=== PATIENT | female | born 1985 | race Caucasian/White ===

== ENCOUNTER 2019-06-14 10:55 | Emergency (ER) | payer OTHER ==
[~2019-06-14] VITALS: Ht 165.1 cm; Wt 70.3 kg
[~2019-06-14 10:55] MED LIST: CIPRO500 MG PO
[2019-06-14] MEDS ORDERED: ZITHROMAX TRI-500 MG PO (15:38)
== END 2019-06-14 16:23 | disposition home or self-care (01) ==
LOC: ER 10:55
DX: B96.0 Mycoplasma pneumoniae [M. pneumoniae] as the cause of diseases classified elsewhere (principal); A90 Dengue fever [classical dengue]; R50.9 Fever, unspecified

== ENCOUNTER 2025-04-19 18:03 | Emergency (ER) | payer OTHER ==
[~2025-04-19] VITALS: Ht 165.1 cm; Wt 74.8 kg
[~2025-04-19 18:03] MED LIST changes: +ZITHROMAX TRI-500 MG PO
[2025-04-19 18:49] VITALS: BP 100/62; O2SAT 99
[2025-04-19] MEDS ORDERED: ACETAMINOPHEN 500 MG GEL..CAP PO ONE (18:51)
[2025-04-19] MEDS ORDERED: FAMOTIDINE/PF 20 MG/2 ML VIAL IV ONE (20:15)
[2025-04-19] MEDS ORDERED: 0.9 % SODIUM CHLORIDE 500 ML IV ONE (20:15)
[2025-04-19] MEDS ORDERED: LACTOBACILLUS ACIDOPHILUS 1 CAP CAP PO ONE ×2 (20:15→20:18)
[2025-04-19] MEDS ORDERED: CEFTRIAXONE SODIUM 2,000 MG VIAL IV ONE (20:15)
[2025-04-19] MEDS ORDERED: CEFTRIAXONE SODIUM 2,000 MG VIAL ONE (20:18)
[2025-04-19] MEDS ORDERED: FAMOTIDINE/PF 20 MG/2 ML VIAL ONE (20:18)
[2025-04-19 20:28] LABS: EOS # 0.02 (0.04-0.54); EOS % 0.2 % (0.7-7.0); HEMATOCRIT 37.8 % (34.1-44.9); HEMOGLOBIN 12.6 g/dL (11.2-15.7); LYMPH # 0.19 (1.18-3.74); LYMPH % 2.3 % (19.3-53.1); MONO # 0.43 (0.24-0.82); MONO % 5.2 % (4.7-12.5); NEUT # 7.66 (1.56-6.13); NEUT % 91.9 % (34.0-71.1); PLATELET COUNT 142 K/uL (163-369); RED BLOOD COUNT 4.34 M/uL (3.93-5.22); RED CELL DISTRIBUTION WIDTH 12.9 % (11.6-14.4)
[2025-04-19 20:35] LABS: PH,URINE 5.5 (5.0-8.0); URINE APPEARANCE Clear; URINE BILIRRUBIN Negative (NEGATIVE); URINE BLOOD Negative; URINE COLOR Yellow; URINE GLUCOSE Negative (NEGATIVE); URINE KETONE Negative (NEGATIVE); URINE LEUKOCYTE Negative; URINE NITRATE Negative; URINE PROTEIN Negative (NEGATIVE); URINE UROBILINOGEN 0.2 E.U./dl
[2025-04-19 20:39] LABS: URINE BACTERIA 396.4 uL (0.0-1933); URINE EPITHELIAL CELLS 12.6 uL (0.0-38.8); URINE RBC 3.6 uL (0.0-20.8); URINE WBC 10.5 uL (0.0-23.2)
[2025-04-19 20:46] LABS: URINE CAST 0.14 uL (0.0-1.40)
[2025-04-19 20:50] LABS: COVID-19 AG NEGATIVE (NEGATIVE); INFLUENZA A AG NEGATIVE (NEGATIVE)
[2025-04-19 21:01] LABS: ALBUMIN 3.8 gm/dL (3.4-5.0); BILIRUBIN TOTAL 0.45 mg/dL (0.3-1.2); CREATININE SERUM 1.08 mg/dL (0.55-1.02); GFR 56.48; GLOBULINA 3.3 G/DL (2.4-3.5); POTASSIUM 3.51 mEq/L (3.5-5.1); TOTAL PROTEIN 7.1 gm/dL (6.4-8.2)
[2025-04-19] MEDS ORDERED: CEFDINIR300 MG PO (22:24)
== END 2025-04-19 22:45 ==
LOC: ER 19:14
PROVIDERS: General Practice
DX: N39.0 Urinary tract infection, site not specified (principal); Z20.822 Contact with and (suspected) exposure to COVID-19

== ENCOUNTER 2025-09-13 21:20 | Emergency (ER) | payer OTHER ==
[~2025-09-13] VITALS: Ht 167.6 cm; Wt 81.6 kg
[~2025-09-13 21:20] MED LIST changes: +CEFDINIR300 MG PO
[2025-09-14 02:26] LABS: BASO % 0.4 % (0.1-1.2); EOS # 0.08 (0.04-0.54); EOS % 1.5 % (0.7-7.0); LYMPH # 2.62 (1.18-3.74); LYMPH % 50.1 % (19.3-53.1); MEAN PLATELET VOLUME 11.20 fl (9.4-12.4); MONO # 0.36 (0.24-0.82); MONO % 6.9 % (4.7-12.5); NEUT # 2.15 (1.56-6.13); NEUT % 41.1 % (34.0-71.1); RED CELL DISTRIBUTION WIDTH 12.9 % (11.6-14.4)
[2025-09-14 03:33] LABS: ALT/SGPT 22.0 U/L (12-78); AST/SGOT 12.0 U/L (15-37); BILIRUBIN TOTAL 0.35 mg/dL (0.3-1.2); BUN CREA RATIO 11.0 (7.0-25.0); CREATININE SERUM 0.74 mg/dL (0.55-1.02); GFR 87.37; GLOBULINA 3.3 G/DL (2.4-3.5); GLUCOSE FASTING 92.0 mg/dL (65-100); OSMOLALITY SERUM 283.0 MOSM/KG (275-295)
[2025-09-14 03:53] LABS: TSH 1.01 uIU/mL (0.358-3.74)
== END 2025-09-14 06:16 | disposition home or self-care (01) ==
LOC: ER 21:20
PROVIDERS: General Practice
DX: R13.10 Dysphagia, unspecified (principal); Z88.2 Allergy status to sulfonamides